=== PATIENT | male | born 1970 ===

== ENCOUNTER 2023-03-10 03:14 | Emergency (ER) | payer BC, OTHER ==
[2023-03-10 03:30] VITALS: RESP 18
[2023-03-10] MEDS ORDERED: PANTOPRAZOLE SODIUM 40 MG VIAL IVPUSH ONE (03:41)
[2023-03-10] MEDS ORDERED: PANTOPRAZOLE SODIUM 40 MG/100 ML BAG IVPB ONE (04:02)
[2023-03-10 04:24] LABS: BASO % 0.7 % (0-2.0); EOS % 13.1 % (0-4.5); HEMATOCRIT 29.6 % (35.4-49); HEMOGLOBIN 9.9 GM/dL (11.7-16.9); LYMPH % 6.7 % (8-40); MCH 29.9 pg (25.7-33.7); MCHC 33.4 g/dl (32.0-35.9); MEAN CELL VOLUME 89.5 fl (80-96); MEAN PLT VOLUME 9.2 fl (7.5-11.1); MONO % 7.8 % (3.8-10.2); NEUT % 71.7 % (42.8-82.8); PLATELET COUNT 354 10^3/uL (134-434); RBC 3.31 M/mm3 (4.00-5.60); RDW 19.6 % (11.9-15.9); WHITE BLOOD COUNT 10.4 K/mm3 (4.0-10.0)
[2023-03-10 04:28] LABS: INR 1.14 (0.83-1.09); PROTHROMBIN TIME (PATIENT) 13.2 SEC (9.7-13.0)
[2023-03-10 04:30] LABS: ACTIVATED PTT 34.9 SECONDS (25.2-36.5)
[2023-03-10 04:41] LABS: CALCIUM 9.2 mg/dL (8.5-10.1)
[2023-03-10 04:42] LABS: ALBUMIN 2.3 g/dl (3.4-5.0); BLOOD UREA NITROGEN 72.6 mg/dL (7-18)
[2023-03-10 04:45] LABS: CREATININE 1.4 mg/dL (0.55-1.3)
[2023-03-10 04:47] LABS: TOT PROT 6.5 g/dl (6.4-8.2)
[2023-03-10] MEDS ORDERED: OCTREOTIDE ACETATE 50 MCG/1 ML - 1 ML VIAL SQ ONE (05:47)
[2023-03-10] MEDS ORDERED: OCTREOTIDE ACETATE 100 MCG/1 ML ONE (06:20)
[2023-03-10] MEDS ORDERED: OCTREOTIDE ACETATE 100 MCG/1 ML SQ ONE (06:30)
[2023-03-10 08:50] LABS: BASO % 0.5 % (0-2.0); EOS % 14.9 % (0-4.5); HEMATOCRIT 27.2 % (35.4-49); HEMOGLOBIN 8.9 GM/dL (11.7-16.9); LYMPH % 7.8 % (8-40); MCH 29.2 pg (25.7-33.7); MCHC 32.8 g/dl (32.0-35.9); MEAN CELL VOLUME 88.9 fl (80-96); MONO % 7.8 % (3.8-10.2); PLATELET COUNT 323 10^3/uL (134-434); RBC 3.06 M/mm3 (4.00-5.60); WHITE BLOOD COUNT 8.4 K/mm3 (4.0-10.0)
[2023-03-10 11:18] LABS: BASO % 0.7 % (0-2.0); EOS % 15.2 % (0-4.5); HEMATOCRIT 26.6 % (35.4-49); HEMOGLOBIN 8.8 GM/dL (11.7-16.9); LYMPH % 7.2 % (8-40); MCH 29.4 pg (25.7-33.7); MEAN CELL VOLUME 89.1 fl (80-96); MEAN PLT VOLUME 8.9 fl (7.5-11.1); NEUT % 68.9 % (42.8-82.8); PLATELET COUNT 307 10^3/uL (134-434); RBC 2.99 M/mm3 (4.00-5.60); RDW 18.7 % (11.9-15.9); WHITE BLOOD COUNT 8.2 K/mm3 (4.0-10.0)
[2023-03-10 12:08] VITALS: BP 103/49; PULSE 89
[2023-03-10 12:15] LABS: ANISOCYTOSIS 0; HELMET CELLS 0; HOWELL-JOLLY BODIES 0; MACROCYTOSIS 0; OVALOCYTE 0; ROULEAU 0; SICKELED CELLS 0; TARGET CELLS 0; TEAR DROP CELLS 0; TOXIC GRANULATION 0
[2023-03-10 12:17] VITALS: TEMP 98.2
== END 2023-03-10 12:34 | disposition short-term general hospital (02) ==
LOC: JER 03:14
PROC: 3E033GC Introduction of Other Therapeutic Substance into Peripheral Vein, Percutaneous Approach (ICD-10-PCS; principal; 2023-03-10)
PROC: 3E023GC Introduction of Other Therapeutic Substance into Muscle, Percutaneous Approach (ICD-10-PCS; 2023-03-10)
DX: K92.2 Gastrointestinal hemorrhage, unspecified (principal); K85.90 Acute pancreatitis without necrosis or infection, unspecified; K80.20 Calculus of gallbladder without cholecystitis without obstruction; D64.9 Anemia, unspecified; Z20.822 Contact with and (suspected) exposure to COVID-19
CPT/HCPCS: 0241U-QW; 36415; 71045-TC-FY; 71275-TC; 74174-TC; 76705-TC; 80053; 82248; 83605; 83690; 84484; 85025; 85610; 85730; 86850; 86900; 86901; 87040; 93005; 93010; 99285-25